=== PATIENT | female | born 1990 | race Caucasian/White ===

== ENCOUNTER 2018-12-24 19:59 | Outpatient (CLI) | payer OTHER ==
[~2018-12-24] VITALS: Ht 149.9 cm; Wt 68.6 kg
[~2018-12-24 19:59] MED LIST: PNV11TAB PO
[2018-12-24 20:01] VITALS: BP 103/60; PULSE 85; RESP 20
[2018-12-24 20:02] VITALS: Ht 149.9 cm; Wt 68.6 kg
[2018-12-24] MEDS ORDERED: OXYTOCIN 30 UNITS/LR 500 ML IV PRN (20:30)
[2018-12-24] MEDS ORDERED: OXYTOCIN 30 UNITS/LR 500 ML IV SCH ×2 (20:30)
[2018-12-24] MEDS ORDERED: LIDOCAINE 1% (MPF) 30 ML INJ INJ PRN (20:30)
[2018-12-24] MEDS ORDERED: BUTORPHANOL 2 MG INJ IV PRN ×2 (20:30)
[2018-12-24] MEDS ORDERED: MISOPROSTOL 200 MCG TAB PR PRN (20:30)
[2018-12-24] MEDS ORDERED: CEFAZOLIN 2 GM/50 ML (PMX) 50 ML IVPB ONE (20:30)
[2018-12-24] MEDS ORDERED: METHYLERGONOVINE 0.2 MG INJ IM PRN (20:30)
[2018-12-24] MEDS ORDERED: IBUPROFEN 600 MG TAB PO PRN (20:30)
[2018-12-24] MEDS ORDERED: CARBOPROST 250 MCG INJ IM PRN (20:30)
[2018-12-24] MEDS: LACTATED RINGER'S 1,000 ML IV SCH (21:40)
[2018-12-25] MEDS: LACTATED RINGER'S 1,000 ML IV SCH ×2 (04:16→14:20)
== END 2018-12-25 15:30 | disposition home or self-care (01) ==
LOC: OBT 19:59 → L-D 20:00 → UNDOADMIN 20:26 → OBT 20:26 → L-D 20:26 → UNDODISIN 12-25 15:30
PROVIDERS: ATTEND Obstetrics & Gynecology
DX: O60.03 Preterm labor without delivery, third trimester (principal); Z3A.37 37 weeks gestation of pregnancy
CPT/HCPCS: 76818; 81003; 85025; 85610; 85730; 86592; 86850; 86900; 86901; 87340; 96360; 96361; G0463; J7120; J0690

== ENCOUNTER 2019-01-07 13:47 | Inpatient (IN) | payer OTHER ==
[~2019-01-07] VITALS: Ht 149.9 cm; Wt 69.8 kg
[2019-01-07] MEDS ORDERED: MISOPROSTOL 200 MCG TAB PR PRN (14:30)
[2019-01-07] MEDS ORDERED: BUTORPHANOL 2 MG INJ IV PRN (14:30)
[2019-01-07] MEDS ORDERED: OXYTOCIN 30 UNITS/LR 500 ML IV SCH ×3 (14:30)
[2019-01-07] MEDS ORDERED: AMPICILLIN 2 GM/NS (PMX) 100 ML IV ONE (14:30)
[2019-01-07] MEDS ORDERED: MINERAL OIL LIGHT 10 ML VIAL TOP PRN (14:30)
[2019-01-07] MEDS ORDERED: METHYLERGONOVINE 0.2 MG INJ IM PRN (14:30)
[2019-01-07] MEDS ORDERED: IBUPROFEN 600 MG TAB PO PRN (14:30)
[2019-01-07] MEDS ORDERED: CARBOPROST 250 MCG INJ IM PRN (14:30)
[2019-01-07] MEDS ORDERED: LIDOCAINE 1% (MPF) 30 ML INJ INJ PRN (14:30)
[2019-01-07 14:32] VITALS: Ht 149.9 cm; Wt 69.8 kg
[2019-01-07] MEDS: LACTATED RINGER'S 1,000 ML IV SCH ×2 (15:33→22:09)
[2019-01-07] MEDS ORDERED: AMPICILLIN 1 GM/NS (PMX) 50 ML IV SCH (18:30)
[2019-01-07] MEDS: OXYTOCIN 30 UNITS/LR 500 ML IV PRN (23:49)
[2019-01-08] MEDS ORDERED: LACTATED RINGER'S 1,000 ML IV PRN (02:00)
[2019-01-08] MEDS ORDERED: FENTAnyl 2MCG/ML-ROPIV 0.2% 100 ML ONE (02:26)
[2019-01-08] MEDS ORDERED: NALOXONE (0.4 MG/ML) INJ IV PRN (02:30)
[2019-01-08] MEDS ORDERED: FENTAnyl 2MCG/ML-ROPIV 0.2% 100 ML BAG EPI SCH (02:30)
[2019-01-08] MEDS ORDERED: ONDANSETRON 4 MG INJ IV PRN (02:30)
[2019-01-08] MEDS ORDERED: DIPHENHYDRAMINE 50 MG INJ IV PRN (02:30)
[2019-01-08] MEDS: LACTATED RINGER'S 1,000 ML IV SCH ×2 (05:39→11:51)
[2019-01-08] MEDS ORDERED: CEFAZOLIN 2 GM/50 ML (PMX) 50 ML IVPB ONE (14:29)
[2019-01-08] MEDS ORDERED: AZITHROMYCIN 500MG/NS (PMX) 250 ML IVPB ONE (15:00)
[2019-01-08] MEDS ORDERED: morphine SULFATE/PF (10 MG/10 ML) INJ ONE (15:38)
[2019-01-08] MEDS ORDERED: METOCLOPRAMIDE 10 MG INJ ONE (15:38)
[2019-01-08] MEDS ORDERED: EPHEDrine 25 MG/5 ML SYG ONE (15:38)
[2019-01-08] MEDS ORDERED: KETOROLAC 30 MG INJ ONE (15:38)
[2019-01-08] MEDS ORDERED: OXYTOCIN 30 UNITS/LR 500 ML IV ONE (15:38)
[2019-01-08] MEDS ORDERED: LIDOCAINE 1.5%/EPI MPF (SDV) 30 ML VIAL ONE (15:38)
[2019-01-08] MEDS: OXYTOCIN 30 UNITS/LR 500 ML IV PRN (16:56)
[2019-01-08] MEDS ORDERED: OXYTOCIN 30 UNITS/LR 500 ML IV SCH (20:11)
[2019-01-08] MEDS ORDERED: NACL 0.9% 3 ML SYG IV SCH (20:30)
[2019-01-08] MEDS ORDERED: CARBOPROST 250 MCG INJ IM PRN (20:30)
[2019-01-08] MEDS ORDERED: MISOPROSTOL 200 MCG TAB PR PRN (20:30)
[2019-01-08] MEDS ORDERED: OXYTOCIN 30 UNITS/LR 500 ML IV PRN (20:30)
[2019-01-08] MEDS ORDERED: METHYLERGONOVINE 0.2 MG INJ IM PRN (20:30)
[2019-01-08 20:33] VITALS: BP 126/69; PULSE 85; RESP 18
[2019-01-08 21:00] VITALS: BP 129/72; PULSE 84; RESP 18
[2019-01-08] MEDS: SENNA/DOCUSATE NA (8.6MG/50MG) TAB PO SCH (21:00)
[2019-01-08] MEDS: CEFAZOLIN 2 GM/50 ML (PMX) 50 ML IVPB SCH (21:30)
[2019-01-09 01:00] VITALS: BP 108/61; PULSE 94; RESP 18
[2019-01-09 05:00] VITALS: BP 106/58; PULSE 92; RESP 18
[2019-01-09] MEDS: CEFAZOLIN 2 GM/50 ML (PMX) 50 ML IVPB SCH ×2 (05:17→11:40)
[2019-01-09] MEDS: LANOLIN HPA 1 PKT TOP PRN (05:20)
[2019-01-09] MEDS ORDERED: KETOROLAC 30 MG INJ IV PRN (06:00)
[2019-01-09] MEDS ORDERED: ONDANSETRON 4 MG INJ IV PRN (06:00)
[2019-01-09] MEDS ORDERED: morphine 2 MG INJ IV PRN ×3 (06:00)
[2019-01-09] MEDS ORDERED: DIPHENHYDRAMINE 50 MG INJ IV PRN (06:00)
[2019-01-09] MEDS ORDERED: NALOXONE (0.4 MG/ML) INJ IV PRN (06:00)
[2019-01-09 07:40] VITALS: BP 106/60; PULSE 91; RESP 18
[2019-01-09] MEDS: LACTATED RINGER'S 1,000 ML IV SCH ×2 (08:11→16:00)
[2019-01-09] MEDS: SENNA/DOCUSATE NA (8.6MG/50MG) TAB PO SCH ×2 (09:17→21:52)
[2019-01-09 15:42] VITALS: BP 98/62; PULSE 81; RESP 20
[2019-01-09] MEDS: IBUPROFEN 600 MG TAB PO SCH (17:40)
[2019-01-09 19:50] VITALS: BP 109/67; PULSE 95; RESP 18
[2019-01-09] MEDS: OXYCODONE/ACETAMINOPHEN (5/325) TAB PO PRN (21:52)
[2019-01-10] MEDS: IBUPROFEN 600 MG TAB PO SCH ×4 (00:01→17:56)
[2019-01-10 04:20] VITALS: BP 103/65; PULSE 80; RESP 18
[2019-01-10 08:00] VITALS: BP 102/65; PULSE 78; RESP 20
[2019-01-10] MEDS: SENNA/DOCUSATE NA (8.6MG/50MG) TAB PO SCH ×2 (10:17→20:56)
[2019-01-10] MEDS: OXYCODONE/ACETAMINOPHEN (5/325) TAB PO PRN ×2 (15:26→20:56)
[2019-01-10 16:00] VITALS: BP 110/63; PULSE 81; RESP 19
[2019-01-10] MEDS: LANOLIN HPA 1 PKT TOP PRN (17:56)
[2019-01-10 19:30] VITALS: BP 109/56; PULSE 79; RESP 18
[2019-01-11] MEDS: IBUPROFEN 600 MG TAB PO SCH ×3 (00:01→12:25)
[2019-01-11 03:30] VITALS: BP 103/69; PULSE 81; RESP 19
[2019-01-11] MEDS: OXYCODONE/ACETAMINOPHEN (5/325) TAB PO PRN ×2 (04:31→08:38)
[2019-01-11 08:00] VITALS: BP 105/61; PULSE 79; RESP 18
[2019-01-11] MEDS: SENNA/DOCUSATE NA (8.6MG/50MG) TAB PO SCH (09:00)
[2019-01-11] MEDS ORDERED: DIPHTH/TET/ACEL PERTUSS (ADULT) 0.5 ML VIAL IM* ONE (09:00)
== END 2019-01-11 14:30 | disposition home or self-care (01) | DRG 788 ==
LOC: L-D 13:47 → MS1 01-08 20:01
PROVIDERS: ADMIT Obstetrics & Gynecology; ATTEND Obstetrics & Gynecology
PROC: 3E033VJ Introduction of Other Hormone into Peripheral Vein, Percutaneous Approach (ICD-10-PCS; 2019-01-08)
PROC: 10D00Z1 Extraction of Products of Conception, Low, Open Approach (ICD-10-PCS; principal; 2019-01-08 16:00)
DX: O62.0 Primary inadequate contractions (principal); Z3A.39 39 weeks gestation of pregnancy; Z37.0 Single live birth
CPT/HCPCS: 62322; 76815; 85025; 85610; 85730; 86592; 86850; 86900; 86901; 87340; 90715; 99464; J0290; J0456; J0690; J1885; J2210; J2274; J2590; J2765; J3010; J7120